=== PATIENT | female | born 1975 | race Caucasian/White ===

== ENCOUNTER 2021-03-11 04:56 | Day surgery (SDC) | payer BC, OTHER ==
[2021-03-10 10:19] VITALS: BMI 21.2
[2021-03-11 13:52] VITALS: BP 101/52; PULSE 55; TEMP 97.4
== END 2021-03-11 14:14 | disposition home or self-care (01) ==
LOC: JASU-ENDO 04:56
PROVIDERS: ATTEND Internal Medicine Gastroenterology
PROC: 0DBN8ZX Excision of Sigmoid Colon, Via Natural or Artificial Opening Endoscopic, Diagnostic (ICD-10-PCS; principal; 2021-03-11 12:30)
DX: R19.7 Diarrhea, unspecified (principal)
CPT/HCPCS: 81025; 88305-TC